=== PATIENT | male | born 1960 | race Caucasian/White ===

== ENCOUNTER 2018-01-08 18:23 | Emergency (ER) | payer OTHER ==
[2018-01-08] MEDS ORDERED: Diphtheria,Pertussis(Acell),Tetanus Vaccine 0.5 ML SDV IM ONE (19:10)
[2018-01-08] MEDS ORDERED: ceFAZolin 1 GM Vial IM ONE (20:19)
[2018-01-08] MEDS ORDERED: Acetaminophen/HYDROcodone 325-5 MG Tab PO ONE (20:19)
--- NOTE | 2018-01-08 20:24 | EDM.PDOC ---
ED HPI GENERAL MEDICAL PROBLEM - General Chief Complaint: Lower Extremity Injury/Pain Stated Complaint: LEFT LYON IS SWELLING UP Time Seen by Provider: 01/08/18 18:46 Source of Information: Reports: Patient History Limitations: Reports: No Limitations - History of Present Illness INITIAL COMMENTS - FREE TEXT/NARRATIVE: Patient is a 57-year-old male who presents the ED complaining of a small abrasion to the left anterior lyon with redness surrounding the site. Patient states Friday night he had a piece of angle iron weighing approximately 120 pounds fall off a piece of machinery hitting him on the lyon and thus causing the abrasion. Since then he's been having increasing pain with ambulation. The past 24 hours his notices increased redness, increased warmth, and worsening pain with some increased swelling as well to the site. He is concerned he has cellulitis and he may have possibly cracked his tibia. Pain with ambulation. Has not taken anything for the discomfort. No fever, chills, or redness streaking up his leg. He has no history of MRSA. Left Lower Leg Pain Score (Numeric/FACES): 6 - Related Data Allergies Allergy/AdvReac Type Severity Reaction Status Date / Time No Known Allergies Allergy Verified 01/08/18 18:29 Home Meds: Home Meds Simvastatin 10 mg PO DAILY 01/08/18 [History] amLODIPine [Norvasc] 5 mg PO DAILY 01/08/18 [History] cephALEXin [Keflex] 500 mg PO QID #40 cap 01/08/18 [Rx] Past Medical History HEENT History: Reports: Impaired Vision Cardiovascular History: Reports: High Cholesterol, Hypertension Gastrointestinal History: Reports: Hemorrhoids Oncologic (Cancer) History: Reports: Malignant Melanoma - Past Surgical History Neurological Surgical History: Reports: Discectomy, Other (See Below) Other Neurological Surgeries/Procedures: cervical disk Musculoskeletal Surgical History: Reports: Other (See Below) Other Musculoskeletal Surgeries/Procedures:: finger surgery Social & Family History - Tobacco Use Smoking Status *Q: Former Smoker Used Tobacco, but Quit: Yes Month/Year Tobacco Last Used: 1983 Second Hand Smoke Exposure: No - Caffeine Use Caffeine Use: Reports: Coffee - Recreational Drug Use Recreational Drug Use: No Review of Systems - Review of Systems Review Of Systems: See Below Constitutional: Denies: Fever Respiratory: Reports: No Symptoms Cardiovascular: Reports: No Symptoms GI/Abdominal: Reports: No Symptoms Musculoskeletal: Reports: Leg Pain (left lower anterior legpain. ) Skin: Reports: Other (abrasion to the left anterior lyon. ) Neurological: Reports: Difficulty Walking (2nd to pain) ED EXAM, GENERAL - Physical Exam Exam: See Below Exam Limited By: No Limitations General Appearance: Alert, WD/WN, No Apparent Distress Ears: Hearing Grossly Normal Nose: Normal Inspection Throat/Mouth: Normal Voice, No Airway Compromise Neck: Normal Inspection, Supple Respiratory/Chest: No Respiratory Distress, No Accessory Muscle Use Cardiovascular: Normal Peripheral Pulses, Regular Rate, Rhythm Peripheral Pulses: 2+: Posterior Tibial (L) Extremities: Other (Mild swelling with faint erythema around a small abrasion to the left lyon. Increasing pain with palpation. Increased warmth noted. No bony point tenderness superior and also distal. No sensory deficits.) Neurological: Alert, Oriented, CN II-XII Intact, Normal Cognition, No Motor/ Sensory Deficits, Abnormal Gait (Limps when he walks.) Psychiatric: Normal Affect, Normal Mood Skin Exam: Warm, Dry Course - Vital Signs Last Recorded V/S: Last Vital Signs Temp 98.0 F 01/08/18 18:30 Pulse 88 01/08/18 18:30 Resp 18 01/08/18 18:30 BP 126/85 01/08/18 18:30 Pulse Ox 97 01/08/18 18:30 - Orders/Labs/Meds Orders: Active Orders 24 hr Category Date Time Status Vaccines to be Administered [RC] PER UNIT ROUTINE Care 01/08/18 19:10 Active Tibia Fibula Lt [CR] Stat Exams 01/08/18 18:57 Taken Labs: Laboratory Tests 01/08/18 01/08/18 Range/Units 19:37 19:37 WBC 4.40 (4.23-9.07) K/mm3 RBC 4.48 L (4.63-6.08) M/mm3 Hgb 13.2 L (13.7-17.5) gm/L Hct 37.8 L (40.1-51.0) % MCV 84.4 (79.0-92.2) fl MCH 29.5 (25.7-32.2) pg MCHC 34.9 (32.2-35.5) g/dl RDW Std Deviation 36.0 (35.1-43.9) fL Plt Count 267 (163-337) K/mm3 MPV 9.4 (9.4-12.3) fl Neutrophils % (Manual) 54 (40-60) % Band Neutrophils % 0 (0-10) % Lymphocytes % (Manual) 38 (20-40) % Atypical Lymphs % 0 % Monocytes % (Manual) 3 (2-10) % Eosinophils % (Manual) 4 (0.8-7.0) % Basophils % (Manual) 1 (0.2-1.2) Platelet Estimate Adequate Plt Morphology Comment Normal RBC Morph Comment Normal Sodium 139 (136-145) mEq/L Potassium 3.9 (3.5-5.1) mEq/L Chloride 104 (98-107) mEq/L Carbon Dioxide 29 (21-32) mEq/L Anion Gap 9.9 (5-15) BUN 12 (7-18) mg/dL Creatinine 0.9 (0.7-1.3) mg/dL Est Cr Clr Drug Dosing 108.23 mL/min Estimated GFR (MDRD) > 60 (>60) mL/min BUN/Creatinine Ratio 13.3 L (14-18) Glucose 160 H (74-106) mg/dL Calcium 8.4 L (8.5-10.1) mg/dL Total Bilirubin 0.9 (0.2-1.0) mg/dL AST 17 (15-37) U/L ALT 28 (16-63) U/L Alkaline Phosphatase 78 (46-116) U/L C-Reactive Protein 2.2 H* (<1.0) mg/dL Total Protein 7.0 (6.4-8.2) g/dl Albumin 3.4 (3.4-5.0) g/dl Globulin 3.6 gm/dL Albumin/Globulin Ratio 0.9 L (1-2) Meds: Medications Discontinued Medications Generic Name Dose Route Start Last Admin Trade Name Freq PRN Reason Stop Dose Admin Hydrocodone Bitart/Acetaminophen 1 tab 01/08/18 20:19 [place] 325-5 Mg PO 01/08/18 20:20 ONETIME ONE Cefazolin Sodium 1 gm 01/08/18 20:19 Ancef IM 01/08/18 20:20 ONETIME ONE Diphtheria/Tetanus/Acell Pertussis 0.5 ml 01/08/18 19:10 01/08/18 19:21 Adacel IM 01/08/18 19:11 0.5 ml .ONCE ONE Administration - Re-Assessments/Exams Free Text/Narrative Re-Assessment/Exam: Labs reviewed: CBC was essentially normal. CMP was essentially normal as well. CRP 2.2. X-ray of the left tib-fib reviewed with Dr. Saldaña with no acute bony abnormalities noted. Final interpretation is pending. Patient has cellulitis. Has no history of MRSA. Ordered Ancef 1 g IM. Will provide crutches on discharge since patient having increasing pain with weightbearing. Discharge instructions as documented. The patient remained hemodynamically stable while under my care in the E.D. I discussed the concerning symptoms for which to returnto the E.D. with the patient/family. The patient/family verbalized understanding. All questions were answered. Departure - Departure Time of Disposition: 20:22 Disposition: Home, Self-Care 01 Condition: Good Clinical Impression: Cellulitis Qualifiers: Site of cellulitis: extremity Site of cellulitis of extremity: lower extremity Laterality: left Qualified Code(s): L03.116 - Cellulitis of left lower limb Contusion, lower leg Qualifiers: Encounter type: initial encounter Laterality: left Qualified Code(s): S80.12XA - Contusion of left lower leg, initial encounter - Discharge Information Prescriptions: cephALEXin [Keflex] 500 mg PO QID #40 cap Instructions: Cellulitis, Adult, Contusion, [id number] Referrals: Isabelle Alcantara DO [Primary Care Provider] - Forms: ED Department Discharge, ED Return to Work/School Form Additional Instructions: X-ray of the left tib-fib did not reveal any acute bony abnormalities. You have cellulitis. Treatment will be Keflex 4 times a day for 10 days. Elevate when able to reduce and swelling and pain. Take tylenol and ibuprofen in alternating fashion for pain. Followup with PCP in the next week for reevaluation if symptoms persist. Return to the E.D. if you develop any new or worsening symptoms as discussed. - My Orders Last 24 Hours: My Active Orders 01/08/18 18:57 Tibia Fibula Lt [CR] Stat 01/08/18 19:10 Vaccines to be Administered [RC] PER UNIT ROUTINE - Assessment/Plan Last 24 Hours: My Active Orders 01/08/18 18:57 Tibia Fibula Lt [CR] Stat 01/08/18 19:10 Vaccines to be Administered [RC] PER UNIT ROUTINE
--- NOTE | 2018-01-09 08:40 | CR ---
Left tibia and fibula: Two views of the left tibia and fibula were obtained. Comparison: No prior exam. Small plantar spur is seen off the calcaneus. No fracture, dislocation or other bony abnormality is seen. Vascular calcification is present. Impression: 1. Incidental findings. Nothing acute is appreciated on two-view left tibia and fibula exam. Diagnostic code #2
== END 2018-01-08 20:43 | disposition home or self-care (01) ==
LOC: JD.ED 18:23
DX: S80.12XA Contusion of left lower leg, initial encounter (principal); L03.116 Cellulitis of left lower limb; Z79.899 Other long term (current) drug therapy; Z23 Encounter for immunization; W20.8XXA Other cause of strike by thrown, projected or falling object, initial encounter
CPT/HCPCS: 36415; 73590-26-LT; 73590-LT; 80053; 85007; 85027; 86140; 90471; 90715; 99284-25

== ENCOUNTER 2020-10-31 16:41 | Emergency (ER) | payer OTHER ==
[2020-10-31] MEDS ORDERED: Sodium Chloride 0.9% 10 ML Syringe FLUSH PRN (17:25)
[2020-10-31] MEDS ORDERED: Ondansetron 4 MG/2 ML SDV IVPUSH ONE (17:29)
[2020-10-31] MEDS ORDERED: Sodium Chloride 0.9% 1,000 ML IV STA (17:29)
[2020-10-31] MEDS ORDERED: Metoclopramide 10 MG/2 ML SDV IVPUSH ONE (18:52)
--- NOTE | 2020-10-31 19:20 | EDM.PDOC ---
ED HPI GENERAL MEDICAL PROBLEM - General Chief Complaint: Cardiovascular Problem Stated Complaint: NAUSEA/HIGH BP/HEADACHE Time Seen by Provider: 10/31/20 16:56 Source of Information: Reports: Patient, Family, RN Notes Reviewed History Limitations: Reports: No Limitations - History of Present Illness INITIAL COMMENTS - FREE TEXT/NARRATIVE: Patient is a 60-year-old male presenting to the emergency department with complaints of nausea, vomiting, mild headache, high blood pressure, and intermittent dizziness. Reports symptoms began around noon today. Checked his blood pressure at home and found to be in the 170s systolically. He is currently prescribed amlodipine 5 mg and he states that he did take this. Symptoms began as feeling of nausea as well as a very mild headache when moving around. Shortly prior to coming to ER, he developed vomiting. He reports intermittent dizziness as well. He has had no chest pain or shortness of breath. Denies any abdominal pain,, fever, chills, or diarrhea. Headache Pain Score (Numeric/FACES): 1 - Related Data Allergies Allergy/AdvReac Type Severity Reaction Status Date / Time lisinopril AdvReac Severe Cough Verified 10/31/20 16:51 streptokinase AdvReac Severe Chest Verified 10/31/20 16:51 Presssure Home Meds: Home Meds Simvastatin 40 mg PO BEDTIME 01/08/18 [History] amLODIPine [Norvasc] 5 mg PO DAILY 01/08/18 [History] Acetaminophen 325 mg PO ASDIRECTED PRN 02/08/20 [History] Aspirin [Aspirin EC] 81 mg PO DAILY 02/08/20 [History] Cholecalciferol (Vitamin D3) [Vitamin D3] 2,000 mg PO DAILY 02/08/20 [History] Folic Acid/Vit B Complex and C [Super B Complex Tablet] 1 tab PO DAILY 02/08/20 [History] Garlic 1,000 mg PO BID 02/08/20 [History] SUMAtriptan [Sumatriptan] 1,000 mg PO ASDIRECTED PRN 02/08/20 [History] Tamsulosin [Flomax] 0.8 mg PO BEDTIME 02/08/20 [History] Vitamin E 400 unit PO DAILY 02/08/20 [History] Amoxicillin/Potassium Clav [Augmentin 875-125 Tablet] 1 each PO Q12H #14 tablet 10/31/20 [Rx] DULoxetine [Cymbalta] 60 mg PO BEDTIME 10/31/20 [History] Fish,Saf,Flx,Brg Oils/O3,6,9N2 [Zbrw-Amum-Shxgnf Oil Softgel] 3,600 mg PO DAILY 10/31/20 [History] Non-Formulary Medication [NF Drug] 1 tab PO BEDTIME 10/31/20 [History] Non-Formulary Medication [NF Drug] 1 tab PO DAILY 10/31/20 [History] Omeprazole 40 mg PO DAILY 10/31/20 [History] Ondansetron [Zofran ODT] 4 mg PO Q6H PRN #10 tab.dis 10/31/20 [Rx] Past Medical History HEENT History: Reports: Impaired Vision Cardiovascular History: Reports: High Cholesterol, Hypertension Respiratory History: Reports: None Gastrointestinal History: Reports: Hemorrhoids Genitourinary History: Reports: None Other Genitourinary History: on tamulosin Musculoskeletal History: Reports: None Neurological History: Reports: None Endocrine/Metabolic History: Reports: Obesity/BMI 30+ Hematologic History: Reports: None Immunologic History: Reports: None Oncologic (Cancer) History: Reports: Malignant Melanoma - Infectious Disease History Infectious Disease History: Reports: Chicken Pox, Measles, Mumps - Past Surgical History GI Surgical History: Reports: Colonoscopy Neurological Surgical History: Reports: Discectomy, Other (See Below) Other Neurological Surgeries/Procedures: cervical disk Musculoskeletal Surgical History: Reports: Other (See Below) Other Musculoskeletal Surgeries/Procedures:: finger surgery Oncologic Surgical History: Reports: Other (See Below) Other Oncologic Surgeries/Procedures: removedx2 Social & Family History - Family History Family Medical History: No Pertinent Family History - Tobacco Use Tobacco Use Status *Q: Never Tobacco User - Caffeine Use Caffeine Use: Reports: Coffee - Recreational Drug Use Recreational Drug Use: No - Living Situation & Occupation Living situation: Reports: , with Spouse Occupation: Employed ED ROS GENERAL - Review of Systems Review Of Systems: See Below Constitutional: Reports: No Symptoms. Denies: Fever, Chills HEENT: Reports: No Symptoms Respiratory: Reports: No Symptoms. Denies: Shortness of Breath, Cough Cardiovascular: Reports: Blood Pressure Problem, Lightheadedness. Denies: Chest Pain Endocrine: Reports: No Symptoms GI/Abdominal: Reports: Nausea, Vomiting. Denies: Abdominal Pain, Diarrhea : Reports: No Symptoms Musculoskeletal: Reports: No Symptoms Skin: Reports: No Symptoms Neurological: Reports: Headache. Denies: Confusion Psychiatric: Reports: No Symptoms Hematologic/Lymphatic: Reports: No Symptoms Immunologic: Reports: No Symptoms ED EXAM, GENERAL - Physical Exam Exam: See Below Exam Limited By: No Limitations General Appearance: Alert, WD/WN, No Apparent Distress Eye Exam: Bilateral Eye: PERRL Ears: Normal External Exam, Normal Canal, Hearing Grossly Normal, Normal TMs Throat/Mouth: Normal Inspection, Normal Lips, Normal Teeth, Normal Gums, Normal Oropharynx, Normal Voice, No Airway Compromise Neck: Normal Inspection, Supple, Non-Tender, Full Range of Motion Respiratory/Chest: No Respiratory Distress, Lungs Clear, Normal Breath Sounds, No Accessory Muscle Use, Chest Non-Tender Cardiovascular: Normal Peripheral Pulses, Regular Rate, Rhythm, No Edema, No Gallop, No JVD, No Murmur, No Rub GI/Abdominal: Normal Bowel Sounds, Soft, Non-Tender, No Organomegaly, No Di stention, No Abnormal Bruit, No Mass Neurological: Alert, Oriented, CN II-XII Intact, Normal Cognition, Normal Gait, Normal Reflexes, No Motor/Sensory Deficits Psychiatric: Normal Affect, Normal Mood Skin Exam: Warm, Dry, Intact, Normal Color, No Rash #1 Interpretation EKG Date: 10/31/20 Time: 17:34 Rhythm: NSR Rate (Beats/Min): 68 [place]: Normal P-Wave: Present QRS: Normal ST-T: Normal QT: Normal Course - Vital Signs Last Recorded V/S: Last Vital Signs Temp 96.9 F 10/31/20 16:48 Pulse 75 10/31/20 16:48 Resp 20 10/31/20 16:48 BP 178/119 H 10/31/20 16:48 Pulse Ox 97 10/31/20 16:48 - Orders/Labs/Meds Labs: Laboratory Tests 10/31/20 10/31/20 10/31/20 Range/Units 17:52 17:52 17:52 WBC 8.05 (4.23-9.07) K/mm3 RBC 4.92 (4.63-6.08) M/mm3 Hgb 14.3 (13.7-17.5) gm/dl Hct 41.7 (40.1-51.0) % MCV 84.8 (79.0-92.2) fl MCH 29.1 (25.7-32.2) pg MCHC 34.3 (32.2-35.5) g/dl RDW Std Deviation 39.8 (35.1-43.9) fL Plt Count 286 D (163-337) K/mm3 MPV 9.6 (9.4-12.3) fl Neut % (Auto) 76.0 H (34.0-67.9) % Lymph % (Auto) 15.3 L (21.8-53.1) % [place] % (Auto) 6.7 (5.3-12.2) % Eos % (Auto) 1.7 (0.8-7.0) Baso % (Auto) 0.1 (0.1-1.2) % Neut # (Auto) 6.11 H (1.78-5.38) K/mm3 Lymph # (Auto) 1.23 L (1.32-3.57) K/mm3 [place] # (Auto) 0.54 (0.30-0.82) K/mm3 Eos # (Auto) 0.14 (0.04-0.54) K/mm3 Baso # (Auto) 0.01 (0.01-0.08) K/mm3 D-Dimer, Quantitative < 0.19 L (0.19-0.50) mg/L Sodium 139 (136-145) mEq/L Potassium 4.1 (3.5-5.1) mEq/L Chloride 100 (98-107) mEq/L Carbon Dioxide 30 (21-32) mEq/L Anion Gap 13.1 (5-15) BUN 10 (7-18) mg/dL Creatinine 0.9 (0.7-1.3) mg/dL Est Cr Clr Drug Dosing 104.32 mL/min Estimated GFR (MDRD) > 60 (>60) mL/min BUN/Creatinine Ratio 11.1 L (14-18) Glucose 103 H (70-99) mg/dL Calcium 8.6 (8.5-10.1) mg/dL Total Bilirubin 0.8 (0.2-1.0) mg/dL AST 25 (15-37) U/L ALT 45 (16-63) U/L Alkaline Phosphatase 92 (46-116) U/L Troponin I < 0.017 (0.00-0.056) ng/mL C-Reactive Protein <0.2 (<1.0) mg/dL Total Protein 7.5 (6.4-8.2) g/dl Albumin 3.8 (3.4-5.0) g/dl Globulin 3.7 gm/dL Albumin/Globulin Ratio 1.0 (1-2) SARS-CoV-2 RNA ([place]) (NEGATIVE) 10/31/20 Range/Units 17:54 WBC (4.23-9.07) K/mm3 RBC (4.63-6.08) M/mm3 Hgb (13.7-17.5) gm/dl Hct (40.1-51.0) % MCV (79.0-92.2) fl MCH (25.7-32.2) pg MCHC (32.2-35.5) g/dl RDW Std Deviation (35.1-43.9) fL Plt Count (163-337) K/mm3 MPV (9.4-12.3) fl Neut % (Auto) (34.0-67.9) % Lymph % (Auto) (21.8-53.1) % [place] % (Auto) (5.3-12.2) % Eos % (Auto) (0.8-7.0) Baso % (Auto) (0.1-1.2) % Neut # (Auto) (1.78-5.38) K/mm3 Lymph # (Auto) (1.32-3.57) K/mm3 [place] # (Auto) (0.30-0.82) K/mm3 Eos # (Auto) (0.04-0.54) K/mm3 Baso # (Auto) (0.01-0.08) K/mm3 D-Dimer, Quantitative (0.19-0.50) mg/L Sodium (136-145) mEq/L Potassium (3.5-5.1) mEq/L Chloride (98-107) mEq/L Carbon Dioxide (21-32) mEq/L Anion Gap (5-15) BUN (7-18) mg/dL Creatinine (0.7-1.3) mg/dL Est Cr Clr Drug Dosing mL/min Estimated GFR (MDRD) (>60) mL/min BUN/Creatinine Ratio (14-18) Glucose (70-99) mg/dL Calcium (8.5-10.1) mg/dL Total Bilirubin (0.2-1.0) mg/dL AST (15-37) U/L ALT (16-63) U/L Alkaline Phosphatase (46-116) U/L Troponin I (0.00-0.056) ng/mL C-Reactive Protein (<1.0) mg/dL Total Protein (6.4-8.2) g/dl Albumin (3.4-5.0) g/dl Globulin gm/dL Albumin/Globulin Ratio (1-2) SARS-CoV-2 RNA ([place]) Negative (NEGATIVE) Meds: Medications Discontinued Medications Generic Name Dose Route Start Last Admin Trade Name Freq PRN Reason Stop Dose Admin Hydralazine HCl 7.5 mg 10/31/20 19:25 10/31/20 19:34 Hydralazine 20 Mg/Ml Sdv IVPUSH 10/31/20 19:26 7.5 mg ONETIME ONE Administration Hydralazine HCl 7.5 mg 10/31/20 20:02 10/31/20 20:08 Hydralazine 20 Mg/Ml Sdv IVPUSH 10/31/20 20:03 7.5 mg ONETIME ONE Administration Sodium Chloride 1,000 mls @ 75 mls/hr 10/31/20 17:29 10/31/20 17:46 Normal Saline IV 11/01/20 06:48 75 mls/hr NOW STA Administration Labetalol HCl 10 mg 10/31/20 20:27 10/31/20 20:33 Labetalol 100 Mg/20 Ml Mdv IVPUSH 10/31/20 20:28 10 mg ONETIME ONE Administration Protocol Metoclopramide HCl 7.5 mg 10/31/20 18:52 10/31/20 18:59 Metoclopramide 10 Mg/2 Ml Sdv IVPUSH 10/31/20 18:53 7.5 mg ONETIME ONE Administration Ondansetron HCl 4 mg 10/31/20 17:29 10/31/20 17:46 Ondansetron 4 Mg/2 Ml Sdv IVPUSH 10/31/20 17:30 4 mg ONETIME ONE Administration Sodium Chloride 10 ml 10/31/20 17:25 10/31/20 17:47 Sodium Chloride 0.9% 10 Ml Syringe FLUSH 10 ml ASDIRECTED PRN Administration Keep Vein Open - Re-Assessments/Exams Free Text/Narrative Re-Assessment/Exam: Patient is a 6-year-old male presenting with complaints of mild headache, nausea and vomiting, occasional dizziness, and high blood pressure. Symptoms began around noon. He spoke with Dr. Allen at the [facility] who recommended he come in for evaluation. He has had no chest pain, shortness of breath, or diarrhea. Work- up is overall unremarkable. Blood pressure in triage was elevated at 178/119. Vital signs were otherwise unremarkable. I have ordered blood work, EKG, chest x-ray, head CT and Covid test. We will start IV fluids of NS at 75 mils per hour and give Zofran 4 mg IV for nausea. 10/31/20 185 Patient is still complaining of nausea, however he has had no further vomiting. I have ordered Reglan 7.5 mg IV to be given now. 10/31/20 19:50 Hematology is grossly unremarkable. D-dimer is undetectably low, troponin is undetectably low, Covid is negative. Chest x-ray shows no acute abnormalities. CT scan of the head impression as follows: 1. There is mild parenchymal volume loss. Mild white matter changes are demonstrated in the subcortical, centrum semiovale and periventricular white matter consistent with chronic age-related small vessel ischemic changes. 2. No acute intracranial abnormality. 3. Sinusitis as described above. No air-fluid levels. Patient is feeling much better. Nausea and dizziness has resolved. Blood pressure still elevated at 160/115. I have ordered hydralazine 7.5 mg IV to be given now. 10/31/20 20:32 Pressure is still elevated at 169/94, I will give labetalol 10 mg IV. Patient would like to go home and get some rest after that. I will have him follow-up with his primary tomorrow. I am going to send prescription for Augmentin for treatment of sinusitis as he reports he has had a significant amount of postnasal drip for an extended period of time. I will also send prescription for Zofran should the nausea recur. Departure - Departure Time of Disposition: 20:45 Disposition: Home, Self-Care 01 Condition: Good Clinical Impression: Nausea and vomiting Qualifiers: Vomiting type: unspecified Vomiting Intractability: non-intractable Qualified Code(s): R11.2 - Nausea with vomiting, unspecified Hypertensive heart disease Qualifiers: Heart failure presence: unspecified whether heart failure present Qualified Code(s): I11.9 - Hypertensive heart disease without heart failure Prescriptions: Amoxicillin/Potassium Clav [Augmentin 875-125 Tablet] 1 each PO Q12H #14 tablet Ondansetron [Zofran ODT] 4 mg PO Q6H PRN #10 tab.dis PRN Reason: Nausea/Vomiting Instructions: Hypertension, Adult, [id number] Referrals: Savi Cordova MD [Primary Care Provider] - Forms: ED Department Discharge Additional Instructions: You were seen in the emergency department today for evaluation with regards to nausea and vomiting as well as intermittent headache and high blood pressure. Work-up included blood work, EKG of your heart, chest x-ray, and CT scan of your head. Your work-up was found to be normal. You do not have a blood clot and you are not having a heart attack. There is no bleeding or other abnormality found within your brain. CT scan did show inflammation within your sinuses. As we discussed this may be chronic, however they may also be bacterial. While in the ER, you received IV fluids, nausea medications, and blood pressure medications. You been started on Augmentin for treatment of sinus infection as well as Zofran for nausea. Take these medications as prescribed. Recommend contacting your primary care tomorrow to follow-up and for ongoing monitoring of your blood pressure. If you should experience any new or worsening symptoms, please not hesitate to return to the emergency department for reevaluation. Sepsis Event Note (ED) - Evaluation Sepsis Screening Result: No Definite Risk
[2020-10-31] MEDS ORDERED: hydrALAZINE 20 MG/ML SDV IVPUSH ONE ×2 (19:25→20:02)
--- NOTE | 2020-10-31 19:38 | CR ---
Chest: 2 views of the chest were obtained. Comparison: No prior chest x-ray is available. Prior cervical spine surgery is seen. Heart size and mediastinum are normal. Lungs are clear with no acute parenchymal change. Bony structures are otherwise unremarkable. Impression: 1. Prior cervical spine surgery. 2. Nothing acute is otherwise seen on 2 view chest x-ray. Diagnostic code #2
--- NOTE | 2020-10-31 20:18 | CT ---
Head CT Technique: Multiple axial sections through the brain were obtained. Intravenous contrast was not utilized. Reconstructed coronal and sagittal images were obtained. Comparison: No prior intracranial imaging is available. Findings: Ventricles along with basal cisterns and sulci over the convexities are mildly prominent. Minimal areas of diminished density are seen within the white matter most likely representing minimal small vessel ischemic demyelination change. No other abnormal parenchymal densities are seen. No evidence of intracranial hemorrhage is seen. No midline shift or mass-effect is seen. Bone window settings were reviewed. There is mucosal thickening within the frontal sinuses, ethmoid sinuses and sphenoid sinuses. Minimal mucosal thickening is partially visualized within the right maxillary sinus. Visualized mastoid sinuses are clear. No acute calvarial abnormality is seen. Impression: 1. Mild senescent change. 2. Sinus disease as noted above most likely chronic. 3. No acute intracranial abnormality is definitely appreciated. Diagnostic code #2 I agree with preliminary report from [facility], finalized on 10/31/20, 7:51 PM CDT, code 1
[2020-10-31] MEDS ORDERED: Labetalol 100 MG/20 ML MDV IVPUSH ONE (20:27)
== END 2020-10-31 20:49 | disposition home or self-care (01) ==
LOC: JD.ED 16:41
DX: R11.2 Nausea with vomiting, unspecified (principal); I11.9 Hypertensive heart disease without heart failure; E78.00 Pure hypercholesterolemia, unspecified; I10 Essential (primary) hypertension; E66.9 Obesity, unspecified; Z20.822 Contact with and (suspected) exposure to COVID-19; Z68.32 Body mass index [BMI] 32.0-32.9, adult; Z79.899 Other long term (current) drug therapy
CPT/HCPCS: 36415; 70450; 71046; 80053; 84484; 85025; 85379; 86140; 87635; 93005; 96374; 96375; 99284; J0360; J2405; J2765; J3490; J7030; U0002